=== PATIENT | male | born 1940 | race Caucasian/White ===

== ENCOUNTER 2024-06-02 00:54 | Emergency (ER) | payer OTHER, SELFPAY ==
[2024-06-02 01:03] VITALS: BP 113/55
[2024-06-02 01:16] VITALS: BMI 21.7
--- NOTE | 2024-06-02 01:53 | ED.GENMED ---
History of Present Illness
General
Chief Complaint: Fall
Source: patient and family
Exam Limitations: none
Time Seen by Provider: 06/02/24 01:32
History of Present Illness
History of Present Illness:
See MDM
Past History
Past History
ED Past Medical History: HTN
ED Past Surgical History: None
Social History
Tobacco: Non-smoker
Alcohol: None
Phy Exam
Physical Exam
Physical Exam:
See MDM
Course
Orders/Labs/Results
Orders:
Orders
06/02/24 01:52
Knee, Left 4 or More Views [CR Knee - Left 4 Or More View*] Urgent
Comment:
Reason For Exam: fall, left knee pain
Shoulder, Right 2 Views [CR Shoulder - Right Min 2 View] Urgent
Comment:
Reason For Exam: fall, R anterior shoulder pain
06/02/24 01:53
CT Cervical Spine W/o Iv Contr Urgent
Comment:
Reason For Exam: fall, neck pain
CT Head W/o Iv Contrast Urgent
Comment:
Reason For Exam: fall, head injury
06/02/24 01:58
Electrocardiogram (*1) Urgent
Reason for Study: Syncope
EKG- Treatment ONCE
06/02/24 03:49
Ibuprofen [Motrin] 400 mg PO NOW STA
Vital Signs
Initial and Last Documented VS:
Initial Vital Signs
Temp Pulse Resp Pulse Ox
97.7 F 72 17 97
06/02/24 00:59 06/02/24 00:59 06/02/24 00:59 06/02/24 00:59
Last Documented Vital Signs
Temp Pulse Resp BP Pulse Ox
97.7 F 66 16 149/84 97
06/02/24 00:59 06/02/24 03:30 06/02/24 03:30 06/02/24 03:12 06/02/24 01:10
Procedures
Laceration Closure
Right Upper Anterior Forehead:
Status of Wound: clean
Size of Wound in cm: 5
Description of Wound Edges: sharp
Preparation: cleaned with Betadine
Anesthesia: 1% Lidocaine with epi
Revision/Debridement: routine- no revision
Wound exploration: explored to base- no FB
Type of Closure: single layer closure
Skin Closure Material: 5-0 nylon
Number of sutures: 7
MDM/Problems Addressed
Differential Diagnosis Includes:
HPI and MDM Narrative:
84-year-old male presenting with a fall. Per , he woke her up after he fell. Patient took a sleeping pill earlier today with he does not always do. He fell forward hitting his head. Patient found to have multiple abrasions to his body which
include his right shoulder, right wrist and both knees. Patient denies any pain but does state he has a mild headache. Patient found to have a large laceration to his right forehead.
Patient believes his tetanus is up-to-date. The laceration was sutured without difficulty. Given age and fall, will obtain CT head and neck. Given the large abrasion to his right shoulder and left knee, will obtain x-rays. Although there is
multiple areas of abrasions throughout his body, there is no other bony tenderness noted
Physical exam
General: Well appearing and non-toxic
HEENT: protecting airway. Pupils equal reactive. 5 cm horizontal laceration to right forehead
Neck: Mildly tender but supple
CV: No evidence of cyanosis
Resp: No accessory muscle use
Abd: Non-distended
Extremities: Abrasion and tenderness to right anterior shoulder and left knee. All 4 extremities neurovascularly intact
Neuro: alert
Psych: Normal affect
Skin: Multiple areas of abrasions throughout his body which include right shoulder, right wrist and both knees
Problems Addressed including Acute and Chronic Conditions affecting care:
1. Unwitnessed fall
Acuity: acute
Prognosis: stable
Details: Likely in the setting of getting out of bed while on a sleep medicine. Will obtain screening EKG
2. Forehead laceration
Acuity: acute
Prognosis: stable
Details: 7 stitches applied.
3. Head injury
Acuity: acute
Prognosis: stable
Details: Will obtain CT head
Updates
CT head neck negative. X-rays negative for fracture. Patient feels comfortable going home
Differential Diagnosis (but not limited to): Intracranial hemorrhage, contusion, concussion
Testing considered: Hip x-rays but he has no bony tenderness
Drug therapy (if applicable): OTC meds, please see d/c instruction regarding Rx drugs
Amount and/or Complexity of Data Reviewed
Clinical info obtained from: Patient and
External data reviewed: N/A
Labs I independently reviewed (but not limited to): N/A
Radiology: The CT scan was personally and independently reviewed. In addition, official CT report reviewed.
X-ray independently reviewed: Right shoulder and left knee x-ray negative for fracture
Pulse Ox: not hypoxic
EKG independently reviewed: N/A
Donkey Ride Operator: N/A
Critical Care: N/A
Risk of Complication:
Social Determinants of health: Good social support
Discussed with other providers: N/A
Escalation of Care includes Admit/Obs: After being observed in the Emergency Department, pt stable for discharge.
Occasional wrong word or 'sound a like' substitutions may have occurred due to the inherent limitations of voice recognition software. Read the chart carefully and recognize, using context, where substitutions have occurred.
*Critical Care Note
Total Time (30-74mins, 75-104mins- exclusive of procedures): Not Applicable
ED Attending Note
-
Portions of this chart may have been created with voice recognition software.� Occasional wrong word or��sound alike� substitutions may have occurred due to the inherent limitations of voice recognition software.
Discharge Plan
Departure
Patient Disposition: Home (Routine Discharge)
Date of Disposition: 06/02/24
Time of Disposition: 03:51
Patient with high blood pressure during this ER visit?: No
Discharge Problem:
Head injury, Facial laceration
Instructions: Laceration Repair With Stitches (DC)
Activity Restrictions/Additional Instructions:
Keep wound clean and dry, change dressing if it becomes soiled or wet. Watch for signs of infection: fever over 100.5', increasing pain, red streaks around wound, swelling, drainage of pus, or bad smell. If any of these happen, return to ED
promptly. Return to ED or make an appointment with your doctor to have the 7 sutures removed in 10 days. All wounds may scar, however you may reduce the appearance of scarring by avoiding sun exposure to the scar and applying skin moisturizer with
spf protection to the scar once the wound is healed.
Interventions
Interventions:
*Risk Screen - Suicide Last Done: 06/02/24 00:59
*General Assessment Last Done: 06/02/24 00:59
*Neglect/Abuse Screening Last Done: 06/02/24 00:59
ED- Fall Risk Assessment Last Done: 06/02/24 01:10
ED-Musculoskeletal Assessment Last Done: 06/02/24 01:10
ED- Neurological Assessment Last Done: 06/02/24 01:10
ED-Skin Assessment Last Done: 06/02/24 01:10
Discharge Date and Time
Print Language: WELSH
[2024-06-02 02:00] VITALS: BP 136/105
[2024-06-02 03:12] VITALS: BP 149/84
[2024-06-02 04:00] VITALS: BP 148/80
[2024-06-02] MEDS: MOTRIN 400 MG PO (04:03)
== END 2024-06-02 04:42 | disposition home or self-care (01) ==
LOC: EMR 00:54
PROVIDERS: EMERGENCY PHYSICIAN Student in an Organized Health Care Education/Training Program; FAMILY PHYSICIAN Internal Medicine
DX: S09.90XA Unspecified injury of head, initial encounter (principal); M25.562 Pain in left knee; M25.511 Pain in right shoulder; M54.2 Cervicalgia; R55 Syncope and collapse; S01.81XA Laceration without foreign body of other part of head, initial encounter
CPT/HCPCS: 99285; 12013; 70450; 72125; 73030; 73564; 93005

== ENCOUNTER 2025-06-06 10:32 | Emergency (ER) | payer OTHER, SELFPAY ==
[2025-06-06 10:38] VITALS: BP 150/95
--- NOTE | 2025-06-06 13:21 | ED.GENMED ---
History of Present Illness
General
Chief Complaint: Musculo-Skeletal Complaint
Source: patient, spouse and family
Time Seen by Provider: 06/06/25 12:42
History of Present Illness
History of Present Illness:
85-year-old male with past medical history of mild cognitive impairment, atrial fibrillation on Eliquis presenting to the ER for evaluation of pain and swelling to the left knee which potentially occurred from a fall yesterday although patient is
unable to recollect any events from the fall and and son who are present with the patient states that this was not witnessed. They note patient is acting his usual self but due to the pain and swelling today decided to bring patient to the
emergency department. No other injuries were reported and patient is without any other pain in his extremities or head.
Past History
Past History
ED Past Medical History: Arrthythmia and HTN
ED Past Surgical History: None
Social History
Tobacco: Non-smoker
Alcohol: None
Drug: None
Personal:
Living: with family
Review of Systems
Review of Systems
All Other Systems: ROS reviewed and negative except as documented in HPI and ROS
Phy Exam
Physical Exam
Physical Exam:
GENERAL: Alert , in no apparent distress
EYE: conjunctiva clear
Head: Normocephalic atraumatic
NECK: Supple,
ENT: mmm.
LUNGS: no acute respiratory distress
NEUROLOGICAL: Alert and oriented
SKIN: Warm and dry, skin intact.
MUSCULOSKELETAL: Left knee: There is a moderate to large joint effusion over the left knee but without any breaks in the skin, no overlying erythema, pain does increase with range of motion with range of motion also being limited secondary to the
amount of swelling
PSYCH: Normal and appropriate interaction.
Scores
Heart Failure Risk
Heart Failure Risk Score: Not Applicable
Heart Score for Chest Pain Patients
STEMI patient?: Not applicable
Withdrawal Assessment of Alcohol
Withdrawal Assessment Completed?: Not applicable
Course
Orders/Labs/Results
Orders:
Orders
06/06/25 10:40
Knee, Left 4 or More Views [CR Knee - Left 4 Or More View*] Urgent
Comment:
Reason For Exam: swelling and pain
06/06/25 13:18
CT Head W/o Iv Contrast Urgent
Comment:
Reason For Exam: possible fall, on eliquis
Ice Pack-Treatment DIRECTED
Location: left knee
Timothy Wrap Left-Treatment ONCE
Vital Signs
Initial and Last Documented VS:
Initial Vital Signs
Temp Pulse Resp BP Pulse Ox
97.7 F 91 14 150/95 98
06/06/25 10:38 06/06/25 10:38 06/06/25 10:38 06/06/25 10:38 06/06/25 10:38
Last Documented Vital Signs
Temp Pulse Resp BP Pulse Ox
97.7 F 91 14 150/95 98
06/06/25 10:38 06/06/25 10:38 06/06/25 10:38 06/06/25 10:38 06/06/25 13:24
MDM/Problems Addressed
Differential Diagnosis Includes:
Osteoarthritis
Gout
Pseudogout
Fracture
Less likely dislocation
Septic joint considered however there is no fever or overlying erythema
Intracranial bleeding
MDM/Problems Addressed:
85-year-old male presenting to the ER for evaluation of a questionably traumatic left knee injury/pain and swelling. Patient questionably fell yesterday, no recollection of the fall and this was not witnessed. No outward signs of infection.
Discussed risk versus benefit of arthrocentesis and given the fact patient is anticoagulated with a possible fall decision was ultimately made to forego arthrocentesis due to increased bleeding risk. Will supportively treat with Timothy wrap and ice.
Follow-up with orthopedics as an outpatient. Given patient is anticoagulated with mild cognitive impairment and unable to recollect events from this potential fall will obtain CT scan of the head as well.
*Radiology
Radiology exam reviewed: preliminary read by ED provider ( arthritic changes throughout the left knee) and radiology read reviewed
*Pulse Oximetry
SaO2: 98
Oxygen Mode of Delivery: Room air
Patient hypoxic: no
*Critical Care Note
Total Time (30-74mins, 75-104mins- exclusive of procedures): Not Applicable
Patient Management
Escalation/DeEscalation of care consider admission/obs:
CT of the head came back without any acute intracranial pathologies. Chronic findings noted and discussed with family. Patient is stable for discharge home. Information for outpatient orthopedic follow-up provided. Aware of return precautions to
the ER.
ED Attending Note
-
Portions of this chart may have been created with voice recognition software.� Occasional wrong word or��sound alike� substitutions may have occurred due to the inherent limitations of voice recognition software.
Discharge Plan
Departure
Patient Disposition: Home (Routine Discharge)
Date of Disposition: 06/06/25
Time of Disposition: 15:11
Patient with high blood pressure during this ER visit?: Yes
Discharge Problem:
Effusion of left knee
Instructions: Knee Pain (DC)
Referrals:
Andreina Meraz MD [Family Provider]
Brendan Barbosa MD [Active, Orthopedics]
Interventions
Interventions:
*General Assessment Last Done: 06/06/25 10:38
*Neglect/Abuse Screening Last Done: 06/06/25 10:38
*Risk Screen - Suicide (C-SSRS) Last Done: 06/06/25 10:38
Discharge Date and Time
Print Language: [place]IZ[place]
== END 2025-06-06 15:40 | disposition home or self-care (01) ==
LOC: EMR 10:32
PROVIDERS: EMERGENCY PHYSICIAN Emergency Medicine; FAMILY PHYSICIAN Internal Medicine
DX: M25.462 Effusion, left knee (principal); W19.XXXA Unspecified fall, initial encounter; I10 Essential (primary) hypertension; I48.91 Unspecified atrial fibrillation; Z79.01 Long term (current) use of anticoagulants
CPT/HCPCS: 99284; 70450; 73564